=== PATIENT | female | born 1995 | race Native Hawaiian/Other Pacific Islander ===

== ENCOUNTER 2020-07-14 15:19 | Emergency (ER) | payer OTHER ==
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
[2020-07-14 19:37] VITALS: BP 110/70
== END 2020-07-14 19:36 | disposition home or self-care (01) ==
LOC: ER 15:19
DX: S16.1XXA Strain of muscle, fascia and tendon at neck level, initial encounter (principal); M54.6 Pain in thoracic spine; V89.2XXA Person injured in unspecified motor-vehicle accident, traffic, initial encounter
CPT/HCPCS: 72070; 72125; 99284